=== PATIENT | female | born 1950 | race Caucasian/White ===

== ENCOUNTER → 2019-04-07 09:09 | Outpatient (CLI) | payer MEDICARE, SELFPAY ==
--- NOTE | ~2019-04-07 | DEXA_ITS ---
Bone Density Report Name: Angelica Browne Age: 69 Sex: Female Ethnicity: White Date of : 1950 Indication: osteopenia; monitoring treatment; height loss; prior fracture; hysterectomy; postmenopausal Referring Provider: GRADY, KAMILA Dougherty Study: Bone densitometry was performed. Exam Date: April 07, 2019 Accession number: [id number] Bone Density: Region BMD T-score Z-score Classification AP Spine (L1-L4) 0.778 -2.4 -0.5 Osteopenia Femoral Neck (Left) 0.643 -1.9 -0.2 Osteopenia Total Hip (Left) 0.786 -1.3 0.1 Osteopenia Femoral Neck (Right) 0.673 -1.6 0.1 Osteopenia Total Hip (Right) 0.873 -0.6 0.8 Normal Total Hip Mean 0.830 -1.0 0.5 Normal World Health Organization criteria for BMD impression classify patients as: Normal (T-score at or above -1.0), Osteopenia (T-score between -1.0 and -2.5), or Osteoporosis (T-score at or below -2.5). 10-year Fracture Risk: FRAX not reported because: Treated for osteoporosis Previous Exams: Region Exam Age BMD T-score BMD Change BMD Change Date g/cm2 vs Baseline vs Previous AP Spine(L1-L4) 04/07/2019 69 0.778 -2.4 -0.022 -0.002 07/02/2016 66 0.780 -2.4 -0.020 -0.034* 05/27/2007 57 0.814 -2.1 0.014 0.014 08/31/2004 54 0.800 -2.2 Total Hip(Left) 04/07/2019 69 0.786 -1.3 -0.039* -0.017 07/02/2016 66 0.803 -1.1 -0.022 0.021 05/27/2007 57 0.782 -1.3 -0.043* -0.043* 08/31/2004 54 0.826 -1.0 Total Hip(Right) 04/07/2019 69 0.873 -0.6 -0.008 0.005 07/02/2016 66 0.868 -0.6 -0.013 0.076* 05/27/2007 57 0.793 -1.2 -0.089* -0.089* 08/31/2004 54 0.882 -0.5 *Denotes significance at 95% confidence level, LSC for AP Spine = 0.022 g/cm2, LSC for Total Hip = 0.027 g/cm2 Clinical Information Provided by Patient: Has had a low trauma fracture Is being treated for osteoporosis Has used the following medications: Calcium, BONIVA IN THE PAST, PT STOPPED A DIFFERENT RX BONE MED RECENTLY-DOESN'T KNOW THE NAME Has the following medical conditions: Hysterectomy Patient maximum height was 62 Menopause Age: 41 No regular weight bearing exercise Drinks caffeinated beverages Onset of menses at age 13 Number of children 2 Impression: The patient has low bone mass, based on the Total Spine T-score. The patient has risk factor
== END ==
PROVIDERS: PCP Internal Medicine; Visit Provider Internal Medicine
DX: M81.0 Age-related osteoporosis without current pathological fracture (principal); M85.88 Other specified disorders of bone density and structure, other site; M85.852 Other specified disorders of bone density and structure, left thigh; M85.851 Other specified disorders of bone density and structure, right thigh
CPT/HCPCS: 77080

== ENCOUNTER → 2020-07-20 17:18 | Outpatient (CLI) | payer MEDICARE, SELFPAY ==
--- NOTE | ~2020-07-20 | MM_ITS ---
EXAMINATION: MM screening ricky BI w travis HISTORY: Screening TECHNIQUE: Craniocaudal and mediolateral oblique 3-D tomosynthesis images were obtained and synthetic 2-D images were generated. CAD analysis was submitted and interpreted. COMPARISON: 07/02/2016 BREAST PARENCHYMAL COMPOSITION: There are scattered areas of fibroglandular density. FINDINGS: There is no evidence of suspicious mass, calcification, or architectural distortion to sugg est malignancy in either breast. There has been no suspicious interval change. IMPRESSION: 1. No mammographic evidence of malignancy. 2. Recommend routine screening mammography in one year. BI-RADS Category 1: Negative Reviewed, dictated and finalized at location A.
== END ==
PROVIDERS: PCP Internal Medicine; Visit Provider Advanced Practice Midwife
DX: Z12.31 Encounter for screening mammogram for malignant neoplasm of breast (principal)
CPT/HCPCS: 77063; 77067

== ENCOUNTER → 2021-09-10 14:33 | Outpatient (CLI) | payer MEDICARE, SELFPAY ==
--- NOTE | ~2021-09-10 | MM_ITS ---
EXAMINATION: MM screening ricky BI w travis HISTORY: Screening mammogram TECHNIQUE: Craniocaudal and mediolateral oblique 3-D tomosynthesis images were obtained and synthetic 2-D images were generated. CAD analysis was submitted and interpreted. COMPARISON: 07/20/2020, 07/02/2016 BREAST PARENCHYMAL COMPOSITION: There are scattered areas of fibroglandular density. FINDINGS: There is no suspicious mass, calcification, or architectural distortion to suggest malignan cy in either breast. There has been no suspicious interval change. IMPRESSION: 1. No mammographic evidence of malignancy. 2. Recommend routine screening mammography in one year. BI-RADS Category 1: Negative Reviewed, dictated and finalized at location A.
--- NOTE | ~2021-09-10 | DEXA_ITS ---
Bone Density Report Name: SARATH RICE Age: 71 Sex: Female Ethnicity: White Date of : 1950 Indication: osteopenia; monitoring treatment; height loss; prior fracture; hysterectomy; postmenopausal Referring Provider: FAITH, NADER Aaron Study: Bone densitometry was performed. Exam Date: September 10, 2021 Accession number: [id number] Bone Density: Region BMD T-score Z-score Classification AP Spine (L1-L4) 0.807 -2.2 0.0 Osteopenia Femoral Neck (Left) 0.636 -1.9 -0.1 Osteopenia Total Hip (Left) 0.805 -1.1 0.4 Osteopenia Femoral Neck (Right) 0.646 -1.8 0.0 Osteopenia Total Hip (Right) 0.886 -0.5 1.1 Normal Total Hip Mean 0.846 -0.8 0.8 Normal World Health Organization criteria for BMD impression classify patients as: Normal (T-score at or above -1.0), Osteopenia (T-score between -1.0 and -2.5), or Osteoporosis (T-score at or below -2.5). 10-year Fracture Risk: FRAX not reported because: Treated for osteoporosis Previous Exams: Region Exam Age BMD T-score BMD Change BMD Change Date g/cm2 vs Baseline vs Previous AP Spine(L1-L4) 09/10/2021 71 0.807 -2.2 0.007 0.029* 04/07/2019 69 0.778 -2.4 -0.022 -0.002 07/02/2016 66 0.780 -2.4 -0.020 -0.034* 05/27/2007 57 0.814 -2.1 0.014 0.014 08/31/2004 54 0.800 -2.2 Total Hip(Left) 09/10/2021 71 0.805 -1.1 -0.021 0.019 04/07/2019 69 0.786 -1.3 -0.039* -0.017 07/02/2016 66 0.803 -1.1 -0.022 0.021 05/27/2007 57 0.782 -1.3 -0.043* -0.043* 08/31/2004 54 0.826 -1.0 Total Hip(Right) 09/10/2021 71 0.886 -0.5 0.004 0.012 04/07/2019 69 0.873 -0.6 -0.008 0.005 07/02/2016 66 0.868 -0.6 -0.013 0.076* 05/27/2007 57 0.793 -1.2 -0.089* -0.089* 08/31/2004 54 0.882 -0.5 *Denotes significance at 95% confidence level, LSC for AP Spine = 0.022 g/cm2, LSC for Total Hip = 0.027 g/cm2 Clinical Information Provided by Patient: Has had a low trauma fracture Is being treated for osteoporosis Has used the following medications: Vitamin D, Calcium, BONIVA IN THE PAST, PT STOPPED A DIFFERENT RX BONE MED RECENTLY-DOESN'T KNOW THE NAME Has the following medical conditions: Hysterectomy Patient maximum height was 62 Menopause Age: 41 Drinks caffeinated beverages Onset of menses at age 13 Number of children 2 --------
== END ==
PROVIDERS: PCP Internal Medicine
DX: Z12.31 Encounter for screening mammogram for malignant neoplasm of breast (principal); Z78.0 Asymptomatic menopausal state; M85.89 Other specified disorders of bone density and structure, multiple sites
CPT/HCPCS: 77063; 77067; 77080

== ENCOUNTER → 2022-11-06 14:31 | Outpatient (CLI) | payer MEDICARE, SELFPAY ==
--- NOTE | ~2022-11-06 | MM_ITS ---
EXAMINATION: MM screening ricky BI w travis HISTORY: Screening mammogram TECHNIQUE: Craniocaudal and mediolateral oblique 3-D tomosynthesis images were obtained and synthetic 2-D images were generated. CAD analysis was submitted and interpreted. COMPARISON: 09/10/2021, 07/20/2020 bilateral screening mammogram examinations BREAST PARENCHYMAL COMPOSITION: There are scattered areas of fibroglandular density. FINDINGS: There is no evidence of suspicious mass, calcification, or architectural distortion to sugg est malignancy in either breast. There has been no suspicious interval change. IMPRESSION: 1. No mammographic evidence of malignancy. 2. Recommend routine screening mammography in one year. BI-RADS Category 1: Negative Reviewed, dictated and finalized at location A.
== END ==
PROVIDERS: PCP Nurse Practitioner; Visit Provider Nurse Practitioner
DX: Z12.31 Encounter for screening mammogram for malignant neoplasm of breast (principal)
CPT/HCPCS: 77063; 77067

== ENCOUNTER 2024-02-04 11:55 | Outpatient (CLI) | payer MEDICARE, SELFPAY ==
--- NOTE | ~2024-02-04 | MM_ITS ---
EXAMINATION: MM screening ricky BI w travis HISTORY: Screening TECHNIQUE: Craniocaudal and mediolateral oblique 3-D tomosynthesis images were obtained and synthetic 2-D images were generated. CAD analysis was submitted and interpreted. COMPARISON: Comparison to multiple prior studies sequentially, with oldest reviewed study dated 04/2016. BREAST PARENCHYMAL COMPOSITION: Not dense: There are scattered areas of fibroglandular density. FINDINGS: There is no evidence of suspicious mass, calcification, or architectural distortion to sugg est malignancy in either breast. There has been no suspicious interval change. IMPRESSION: 1. No mammographic evidence of malignancy. 2. Recommend routine screening mammography in one year. BI-RADS Category 1: Negative Reviewed, dictated and finalized at location B. RALIST
== END 2024-02-04 11:56 | disposition home or self-care (01) ==
PROVIDERS: PCP Nurse Practitioner; Visit Provider Internal Medicine
DX: Z12.31 Encounter for screening mammogram for malignant neoplasm of breast (principal)
CPT/HCPCS: 77063; 77067